=== PATIENT | female | born 1930 | race Caucasian/White ===

== ENCOUNTER 2017-07-26 14:52 | Outpatient (CLI) | payer MEDICARE, OTHER | END 2017-07-26 14:53 | disposition home or self-care (01) | LOC: BICMAMMO 14:52 | PROVIDERS: ATTEND Obstetrics & Gynecology | DX: Z12.31 Encounter for screening mammogram for malignant neoplasm of breast (principal) | CPT/HCPCS: 77063; 77067 ==

== ENCOUNTER 2018-10-11 14:46 | Outpatient (CLI) | payer MEDICARE, OTHER ==
--- NOTE | 2018-10-11 15:30 | BD ---
DEXA BONE DENSITY SCAN: Date: 10/11/18 COMPARISON: None. HISTORY: Osteoporosis. FINDINGS: Lumbar Spine BMD (g/cm2) L1 0.780 T-Score -1.9 L2 0.978 T-Score -0.5 L3 1.042 T-Score -0.4 L4 1.041 T-Score -0.2 L1-L4 0.961 T-Score -0.8 Right Femoral Neck 0.582 T-Score -2.4 Total Femur 0.802 T-Score -1.1 FRAX-WHO fracture risk assessment tool is not reported secondary to a history of prior hip or vertebr al fracture. IMPRESSION: 1. Normal lumbar spine bone mineral density. 2. Osteopenia of the right femoral neck, correlating with a moderately increased risk for fracture. POS: OFF
== END 2018-10-11 14:47 | disposition home or self-care (01) ==
LOC: BICMAMMO 14:46
PROVIDERS: ATTEND Internal Medicine Rheumatology
DX: M81.0 Age-related osteoporosis without current pathological fracture (principal); M85.851 Other specified disorders of bone density and structure, right thigh
CPT/HCPCS: 77080